=== PATIENT | male | born 1965 | race Caucasian/White ===

== ENCOUNTER 2017-11-17 20:45 | Emergency (ER) | payer OTHER ==
[~2017-11-17] VITALS: Ht 172.7 cm; Wt 102.1 kg
[2017-11-17 21:02] VITALS: BP 147/74
--- NOTE | 2017-11-17 23:04 | ED GENERAL ADULT ---
History of Present Illness General Chief Complaint: Laceration Procedure Stated Complaint: FISHING HOOK IN R LEG Source: patient Exam Limitations: no limitations Vital Signs & Intake/Output Vital Signs & Intake/Output Vital Signs Date Time Temp Pulse Resp B/P B/P Pulse O2 O2 Flow FiO2 Mean Ox Delivery Rate 11/17 2102 97.6 88 18 147/74 96 Room Air ED Intake and Output 11/18 0000 11/17 1200 Intake Total Output Total Balance Patient 225 lb Weight Weight Reported by Patient Measurement Method Allergies Coded Allergies: NO KNOWN ALLERGIES (NKDA 11/17/17) Triage Note: PT TO ED C/O FISH HOOK STUCK IN RT LOWER LEG FOR APPROX 90 MINS. UNSURE OF LAST TETANUS Triage Nurses Notes Reviewed? yes Onset: Abrupt Duration: hour(s): Timing: single episode today HPI: 52-year-old male with a history of hyperlipidemia and GERD presenting with a fishing hook in his right lower extremity 1-2 hours. Patient reports that he was wrapping a hose and did not realize that there was a fishing line with a fishing hook tingled within the house. States that the fishing line swung resulting in the fishing hook striking his leg. Unsure of his last tetanus. (Donna Ordonez) Past History Travel History Traveled to [place] past 21 day No Medical History Any Pertinent Medical History? see below for history Cardiovascular: hyperlipidemia Gastrointestinal: GERD Tetanus Vaccine: 11/17/17 Surgical History Surgical History: non-contributory Psychosocial History What is your primary language Sinhala Tobacco Use: Never used ETOH Use: occasional use Illicit Drug Use: denies illicit drug use Family History Hx Contributory? No (Donna Ordonez) Review of Systems Review of Systems Constitutional: Reports: no symptoms. EENTM: Reports: no symptoms. Respiratory: Reports: no symptoms. Cardiovascular: Reports: no symptoms. GI: Reports: no symptoms. Genitourinary: Reports: no symptoms. Musculoskeletal: Reports: no symptoms. Skin: Reports: see HPI. Neurological/Psychological: Reports: no symptoms. Hematologic/Endocrine: Reports: no symptoms. Immunologic/Allergic: Reports: no symptoms. All Other Systems: Reviewed and Negative (Donna Ordonez) Physical Exam Physical Exam General Appearance: well developed/nourished, no apparent distress, alert, awake Comments: Gen.: Well-nourished, well-developed, no acute distress. Head: Normocephalic, atraumatic. Eyes: Normal inspection bilaterally Ears: Normal inspection bilaterally Nose: Normal inspection Neck: Normal inspection Lungs: clear to auscultation bilaterally, normnal breath sounds Heart: regular rate and rhythm Abdomen: soft and non-tender Extremities: Large 3 Diana fishing hook within the lateral right lower extremity, 1 Diana is noted to be underneath the skin while the other 2 barbs are exposed, sensation intact, motor strength 5 out of 5, distal pulses 2+ Neurologic: alert and oriented x3, steady gait Skin: warm and dry Psychiatric: Normal mood and affect, no apparent delusions or hallucinations, behavior appropriate Core Measures ACS in differential dx? No CVA/TIA Diagnosis: No Sepsis Present: No Sepsis Focused Exam Completed? No (Donna Ordonez) Progress Differential Diagnoses I considered the following diagnoses in my evaluation of the patient: [Foreign body versus laceration, will concern for tendon injury versus nerve injury versus vascular injury] Plan of Care: Current Medications Sig/Wai Start time Last Medication Dose Stop Time Status Admin Tetanus/Diphtheria 0.5 ML ONCE ONE 11/17 2244 UNVr 11/17 Toxoids Adsorbed 11/17 ([facility]) Fishing hook was removed as described under the procedure note. Tetanus updated. Patient offered empiric antibiotics as this was a water injury with a dirty fish hook, but declining at this time. Counseled on strict return precautions and will return for antibiotic should he develop any signs of infection. Initial ED EKG: none (Donna Ordonez) Departure Departure Disposition: HOME OR SELF CARE Condition: Stable Clinical Impression Primary Impression: Fish hook injury of lower leg Referrals: Patient Has No Primary Care Dr (PCP/Family) Additional Instructions: Keep the wound clean. Follow-up with a primary care provider for further evaluation and to establish care. Return to the emergency department for any new or worsening symptoms. Departure Forms: Customer Survey General Discharge Information (Donna Ordonez) PA/BIT SHARPENER OPERATOR Co-Sign Statement Statement: ED Attending supervision documentation- I saw and evaluated the patient. I have also reviewed all the pertinent lab results and diagnostic results. I agree with the findings and the plan of care as documented in the PA's/BIT SHARPENER OPERATOR's documentation. x I have reviewed the ED Record and agree with the PA's/BIT SHARPENER OPERATOR's documentation. [] Additions or exceptions (if any) to the PAs/BIT SHARPENER OPERATOR's note and plan are summarized below: [] (Marcia WOODRUFF,Evelio) Procedures Additional Procedures Additional Procedures: foreign body removal Progress: Skin was anesthetized with 1% lidocaine, the diana was pushed through the skin, the diana was then cut off, and the remainder of the fishing hook was pulled backwards through skin, the area was appropriately cleansed with Betadine. (Donna Ordonez) Critical Care Note Critical Care Note Critical Care Time: non-applicable (Donna Ordonez)
== END 2017-11-17 23:06 ==
LOC: ERH 20:45
DX: S80.851A Superficial foreign body, right lower leg, initial encounter (principal); Y93.89 Activity, other specified; Y92.9 Unspecified place or not applicable; E78.5 Hyperlipidemia, unspecified; K21.9 Gastro-esophageal reflux disease without esophagitis; F10.10 Alcohol abuse, uncomplicated
CPT/HCPCS: 90471; 90714; J2001